=== PATIENT | male | born 1980 ===

== ENCOUNTER 2024-12-08 08:00 | Day surgery (SDC) | payer OTHER ==
[2024-12-01 11:18] LABS: BASO % 0.7 % (0.1-1.2); EOS # 0.13 (0.04-0.54); EOS % 1.7 % (0.7-7.0); LYMPH # 2.00 (1.18-3.74); LYMPH % 26.4 % (19.3-53.1); MEAN PLATELET VOLUME 9.60 fl (9.4-12.4); MONO # 0.60 (0.24-0.82); MONO % 7.9 % (4.7-12.5); NEUT # 4.73 (1.56-6.13); NEUT % 62.2 % (34.0-71.1); RED CELL DISTRIBUTION WIDTH 11.6 % (11.6-14.4)
[2024-12-01 11:19] LABS: URINE APPEARANCE Clear; URINE BILIRRUBIN Negative (NEGATIVE); URINE BLOOD Negative; URINE COLOR Yellow; URINE GLUCOSE Negative (NEGATIVE); URINE KETONE Negative (NEGATIVE); URINE LEUKOCYTE Negative; URINE NITRATE Negative; URINE PROTEIN Negative (NEGATIVE); URINE UROBILINOGEN 0.2 E.U./dl
[2024-12-01 11:24] LABS: URINE BACTERIA 16.7 uL (0.0-1933); URINE EPITHELIAL CELLS 1.6 uL (0.0-38.8); URINE WBC 1.9 uL (0.0-23.2)
[2024-12-01 11:25] LABS: URINE CAST 0.00 uL (0.0-1.40); URINE RBC 0.8 uL (0.0-20.8)
[2024-12-01 11:42] LABS: INR 1.04
[2024-12-01 12:01] LABS: BUN CREA RATIO 17.0 (7.0-25.0); CREATININE SERUM 1.01 mg/dL (0.70-1.30); GFR 81.4; GLUCOSE FASTING 94.0 mg/dL (65-100); OSMOLALITY SERUM 283.0 MOSM/KG (275-295)
[2024-12-01 12:33] VITALS: BP 136/89
[~2024-12-08] VITALS: Ht 180.3 cm; Wt 101.2 kg
[~2024-12-08 08:00] MED LIST: LOTREL 10-20 M1 EACH PO
[2024-12-08] MEDS ORDERED: CEFAZOLIN SODIUM 1,000 MG VIAL ONE (08:31)
[2024-12-08] MEDS ORDERED: EPINEPHRINE HCL/PF 1 MG/ML AMPUL ONE ×2 (09:02→09:19)
[2024-12-08] MEDS ORDERED: LIDOCAINE HCL 1%/EPINEPHRINE 20ML VIAL IJ ONE (09:05)
[2024-12-08] MEDS ORDERED: POVIDONE-IODINE SCRUB 118 ML BOTT TOP ONE (09:05)
[2024-12-08] MEDS ORDERED: POVIDONE-IODINE 118 ML BOTT TOP ONE (09:05)
[2024-12-08] MEDS ORDERED: CIPROFLOXACIN2.5 ML OTIC (12:09)
[2024-12-08] MEDS ORDERED: CEPHALEXIN500 MG PO (12:09)
== END 2024-12-08 13:35 | disposition home or self-care (01) ==
LOC: CIR.AMB 08:00
PROVIDERS: ATTEND Otolaryngology Otology & Neurotology
DX: H72.01 Central perforation of tympanic membrane, right ear (principal); H90.11 Conductive hearing loss, unilateral, right ear, with unrestricted hearing on the contralateral side